=== PATIENT | male | born 1965 | race Caucasian/White ===

== ENCOUNTER 2016-06-05 19:58 | Emergency (ER) | payer OTHER ==
[2016-06-05 20:08] VITALS: BP 128/88; PULSE 84; TEMP 98; BMI 26.4
[2016-06-05] MEDS ORDERED: KETOROLAC TROMETHAMINE 60 MG/2 ML VIAL IM ONE (21:23)
[2016-06-05] MEDS ORDERED: KETOROLAC TROMETHAMINE 60 MG/2 ML VIAL ONE (21:35)
--- NOTE | 2016-06-05 22:12 | PDOC ---
History of Present Illness - General Chief Complaint: Pain, Acute Stated Complaint: LT KNEE PAIN Time Seen by Provider: 06/05/16 21:09 History Source: Patient Exam Limitations: No Limitations - History of Present Illness Initial Comments: 06/05/16 22:07 CHRONIC PAIN LEFT KNEE; NO NEW TRAUMA Occurred: reports: other (X YEARS) Lower Extremity Pain Location: left: knee Method of Injury: Yes: other (WORK RELATED) Past History - Past Medical History Allergies/Adverse Reactions: Allergies Allergy/AdvReac Type Severity Reaction Status Date / Time No Known Allergies Allergy Verified 06/05/16 20:05 Home Medications: Ambulatory Orders NK [No Known Home Medication] 06/05/16 - Psycho/Social/Smoking Cessation Hx Suicidal Ideation: No Smoking Status: Yes Smoking History: Current every day smoker Number of Cigarettes Smoked Daily: 20 Information on smoking cessation initiated: No Hx Alcohol Use: No Drug/Substance Use Hx: No Review of Systems - Review of Systems Constitutional: No: Symptoms Reported, Chills, Fever HEENTM: No: Symptoms Reported Respiratory: No: Symptoms reported : No: Symptoms Reported Musculoskeletal: No: Joint Swelling, Joint Stiffness Integumentary: No: Symptoms Reported Neurological: No: Symptoms reported Hematologic/Lymphatic: No: Symptoms Reported *Physical Exam - Vital Signs Last Vital Signs Temp Pulse Resp BP Pulse Ox 98.0 F 84 14 128/88 96 06/05/16 20:06 06/05/16 20:06 06/05/16 20:06 06/05/16 20:06 06/05/16 20:06 - Physical Exam General Appearance: Yes: Appropriately Dressed. No: Apparent Distress HEENT: positive: TMs Normal, Pharynx Normal Respiratory/Chest: positive: Lungs Clear. negative: Chest Tender Gastrointestinal/Abdominal: positive: Normal Bowel Sounds Extremity: negative: Normal Capillary Refill, Normal Inspection, Normal Range of Motion, Pelvis Stable Integumentary: positive: Other. negative: Ecchymosis (TENDER TO AREA ANTERIOR MEDIAL KNEE; NO JOINT LAXITY) ED Treatment Course - RADIOLOGY Radiology Studies Ordered: Category Date Time Status KNEE 2 POS-LEFT [RAD] Stat Radiology 06/05/16 21:24 Ordered - Medications Given in the ED: ED Medications Discontinued Medications Generic Name Dose Route Start Last Admin Trade Name Freq PRN Reason Stop Dose Admin Ketorolac Tromethamine 60 mg 06/05/16 21:23 06/05/16 21:37 Toradol Injection - IM 06/05/16 21:24 60 mg ONCE ONE Administration Medical Decision Making - Medical Decision Making 06/05/16 22:10 XRAY= NO ACUTE FRACTURE; LOST OF JOINT SPACE NOTED *DC/Admit/Observation/Transfer Diagnosis at time of Disposition: Knee pain, chronic Qualifiers: Laterality: left Qualified Code(s): M25.562 - Pain in left knee; G89.29 - Other chronic pain - Discharge Dispostion Disposition: HOME Condition at time of disposition: Stable Admit: No - Referrals Referrals: STAFF,NOT ON [Primary Care Provider] - Angel Bryson MD [Staff Physician] - - Patient Instructions Additional Instructions: PLEASE FOLLOW UP WITH DR BRYSON FOR FURTHER EVALUATION OF KNEE
== END 2016-06-05 22:23 | disposition home or self-care (01) ==
LOC: JERFT 19:58
PROC: 3E0233Z Introduction of Anti-inflammatory into Muscle, Percutaneous Approach (ICD-10-PCS; principal; 2016-06-05)
DX: M25.562 Pain in left knee (principal); G89.29 Other chronic pain; F17.210 Nicotine dependence, cigarettes, uncomplicated
CPT/HCPCS: 73560-TC-LT; 96372; 99281-25